=== PATIENT | male | born 1990 | race Caucasian/White ===

== ENCOUNTER 2016-04-22 15:17 | Inpatient (IN) | payer OTHER ==
[2016-04-22] MEDS ORDERED: IPRATROPIUM-ALBUTEROL 3 ML NEB INHALATION STA (16:59)
[2016-04-22] MEDS ORDERED: IBUPROFEN 600 MG TAB PO STA (16:59)
--- NOTE | 2016-04-22 17:04 | ED ---
SOB HPI - General Source: patient, RN notes reviewed Mode of arrival: ambulatory Limitations: no limitations <Kat Espinosa - Last Filed: 04/22/16 19:45> <Grzegorz Flor - Last Filed: 04/22/16 19:54> - General Chief Complaint: Shortness of Breath Stated Complaint: SALAS Time Seen by Provider: 04/22/16 16:56 - History of Present Illness Initial Comments: 25-year-old male presents to the emergency Department chief complaint of shortness of breath. Patient states he's had a cough for the past few days. Last night it became harder to breathe. Patient states he had a lot of phlegm production. Patient is a smoker. Patient denies any other health history. Patient denies a runny nose or sore throat. Patient states that this cough and the shortness of breath is just becoming more bothersome so he thought that he should be seen. Patient denies any other symptoms at this time.Patient denies any recent fever, chills, chest pain, back pain, abdominal pain, nausea vomiting , numbness or tingling, dysuria or hematuria, constipation or diarrhea, headaches or visual changes, or any other current symptoms. (Kat Espinosa) - Related Data Home Medications Medication Instructions Recorded Confirmed Acetaminophen Tab [Tylenol Tab] 325 mg PO Q4H PRN 04/22/16 04/22/16 Ibuprofen [Motrin] 400 mg PO Q6HR PRN 04/22/16 04/22/16 guaiFENesin [Mucinex] 600 mg PO BID PRN 04/22/16 04/22/16 Allergies Allergy/AdvReac Type Severity Reaction Status Date / Time No Known Allergies Allergy Verified 04/22/16 16:20 Review of Systems ROS Other: All systems not noted in ROS Statement are negative. <Kat Espinosa - Last Filed: 04/22/16 19:45> ROS Other: All systems not noted in ROS Statement are negative. <Grzegorz Flor - Last Filed: 04/22/16 19:54> ROS Statement: Those systems with pertinent positive or pertinent negative responses have been documented in the HPI. Past Medical History Past Medical History: No Reported History History of Any Multi-Drug Resistant Organisms: None Reported Past Surgical History: No Surgical Hx Reported Past Psychological History: No Psychological Hx Reported Smoking Status: Current every day smoker Past Alcohol Use History: Occasional Past Drug Use History: Marijuana <Kat Espinosa - Last Filed: 04/22/16 19:45> General Exam Limitations: no limitations <Kat Espinosa - Last Filed: 04/22/16 19:45> <Grzegorz Flor - Last Filed: 04/22/16 19:54> - General Exam Comments Initial Comments: General: The patient is awake and alert, in no distress, and does not appear acutely ill. Eye: Pupils are equal, round. Ears, nose, mouth and throat: There are moist mucous membranes. Neck: The neck is supple, there is no tenderness. Cardiovascular: There is a regular rate and rhythm. No murmur, rub or gallop is appreciated. Respiratory: Lungs are clear to auscultation, respirations are non-labored, breath sounds are equal but diminished mental minimal wheeze, no stridor, rales , or rhonchi. Gastrointestinal: Soft, non-distended, non-tender abdomen without masses or organomegaly noted. There is no rebound or guarding present. No CVA tenderness. Bowel sounds are unremarkable. Back: There is no tenderness to palpation in the midline. There is no obvious deformity. No rashes noted. Musculoskeletal: Normal ROM, no tenderness, There is no pedal edema. There is no calf tenderness or swelling. Sensation intact. Pulses equal bilaterally 2+. Neurological: CN II-XII intact, There are no obvious motor or sensory deficits. Coordination appears grossly intact. Speech is normal. Skin: Skin is warm and dry and no rashes or lesions are noted. Psychiatric: Cooperative, appropriate mood & affect, normal judgment. (Kat Espinosa) Course <Kat Espinosa - Last Filed: 04/22/16 19:45> <Grzegorz Flor - Last Filed: 04/22/16 19:54> Vital Signs 04/22/16 04/22/16 04/22/16 16:08 16:48 17:29 Temperature 99.3 F Pulse Rate 90 104 H Respiratory 18 20 Rate Blood Pressure 124/79 O2 Sat by Pulse 99 Oximetry 04/22/16 04/22/16 17:40 18:11 Temperature Pulse Rate 100 Respiratory 18 Rate Blood Pressure O2 Sat by Pulse Oximetry - Reevaluation(s) Reevaluation #1: 04/22/16 19:53 I did personally do a [id number] examination the patient and did discuss the findings with him and his significant other. Patient has been coughing for a week he does have at this time recently clear lung sounds with good heart sounds. Is some tenderness palpation of the anterior lateral neck with some slight crepitation noted. I did discuss the case with Dr. Adkins and with Dr. Alan. Patient will be admitted place an IV antibiotics oxygen antitussives repeat x-ray in the morning. He currently is stable awake alert oriented in no acute distress. His trachea is midline. (Grzegorz Flor) Medical Decision Making - Radiology Data Radiology results: report reviewed, image reviewed <Kat Espinosa - Last Filed: 04/22/16 19:45> <Grzegorz Flor - Last Filed: 04/22/16 19:54> - Medical Decision Making 25-year-old male presents emergency Department with a chief complaint of shortness of breath. At this time patient's wheezing has improved with the breathing treatment. This time patient's chest x-ray showing a pneumomediastinum as well as a bronchial pneumonia. This time we will start patient on oxygen we will also start him on Tessalon Perles and we will start him antibiotics for the bronchial pneumonia. We did discuss repeat chest x-ray in am. Patient Stated He Understood All Questions Have Been Answered. He Will Be admitted. (Kat Espinosa) Disposition Time of Disposition: 19:32 Decision Date: 04/22/16 Decision Time: 19:32 <Kat Espinosa - Last Filed: 04/22/16 19:45> <Grzegorz Flor - Last Filed: 04/22/16 19:54> Clinical Impression: Nicotine abuse, Pneumomediastinum Disposition: ADMITTED IP TO THIS [facility] Condition: Stable Referrals: None,Stated [Primary Care Provider] - 1-2 days
--- NOTE | 2016-04-22 17:53 | XR ---
EXAMINATION TYPE: XR chest 2V DATE OF EXAM: 04/22/2016 5:06 PM COMPARISON: NONE HISTORY: Cough and congestion TECHNIQUE: Frontal and lateral views of the chest are obtained. FINDINGS: There is no focal air space opacity, pleural effusion, or pneumothorax seen. The cardiac silhouette size is within normal limits. The osseous structures are intact. Lucency extends from th e thoracic inlet towards the neck. IMPRESSION: Pneumomediastinum
--- NOTE | 2016-04-22 19:08 | CT ---
EXAMINATION TYPE: CT chest wo con DATE OF EXAM: 04/22/2016 6:24 PM COMPARISON: Chest x-ray same day HISTORY: Cough x 2 days with right sided chest pain radiating to neck. CT DLP: 818.00 mGycm Automated exposure control for dose reduction was used. FINDINGS: Pneumomediastinum with air dissection into the neck is again noted, there is also present over the up per chest anteriorly towards the right of midline. There is no pneumothorax. Patchy density present i n the left upper lobe, left lower lobe and right lower lobe. Bronchial wall thickening is noted. Sple en is enlarged. No mediastinal adenopathy, no hilar or axillary adenopathy. Bones are normal. Aorta s hows normal caliber. No pleural effusion. Possible medullary sponge kidney findings. IMPRESSION: PNEUMOMEDIASTINUM, BRONCHOPNEUMONIA BILATERALLY. SPLENOMEGALY.
[2016-04-22] MEDS ORDERED: HYDROmorphone 1 MG/ML 1 ML SYRINGE IVP STA (19:26)
[2016-04-22] MEDS ORDERED: PNEUMONIA PROTOCOL UTILIZED 1 EACH MISC PO PRN (19:46)
[2016-04-22] MEDS ORDERED: LEVOFLOXACIN 750MG-D5W PMX 750 MG in DEXTROSE/WATER 1 150ML.BAG IVPB STA (19:46)
[2016-04-22] MEDS ORDERED: BENZONATATE 100 MG CAP PO STA (19:48)
[2016-04-22] MEDS ORDERED: IBUPROFEN 400 MG TAB PO PRN (19:49)
[2016-04-22] MEDS ORDERED: ACETAMINOPHEN TAB 325 MG TAB PO PRN (19:49)
[2016-04-22] MEDS: SODIUM CHLORIDE 0.9% 1,000 ML IV SCH (20:20)
[2016-04-22 20:31] LABS: Basophils % (A) 0 %; CH 30.9; CHCM 34.8; Eosinophils # (A) 0.1 k/uL (0-0.7); Eosinophils % (A) 1 %; HCT 46.2 % (39.0-53.0); HDW 2.39; HGB 15.8 gm/dL (13.0-17.5); Luc # (Auto) 0.36; Luc % (Auto) 3; Lymphocytes # (A) 1.7 k/uL (1.0-4.8); Lymphocytes % (A) 14 %; MCH 30.4 pg (25.0-35.0); MCHC 34.1 g/dL (31.0-37.0); MCV 89.1 fL (80.0-100.0); Mean Platelet Volume 6.5; Monocytes # (A) 0.5 k/uL (0-1.0); Monocytes % (A) 5 %; Neutrophils # (A) 8.9 k/uL (1.3-7.7); Neutrophils % (A) 77 %; RBC 5.19 m/uL (4.30-5.90); RDW 12.7 % (11.5-15.5); WBC 11.6 k/uL (3.8-10.6); WBC (Perox) 11.79
[2016-04-22 20:45] LABS: ALT 27 U/L (21-72); AST 20 U/L (17-59); Alkaline Phosphatase 94 U/L (38-126); Anion Gap 16 mmol/L; Blood Urea Nitrogen 16 mg/dL (9-20); Calcium 9.9 mg/dL (8.4-10.2); Carbon Dioxide 21 mmol/L (22-30); Chloride 105 mmol/L (98-107); Glucose 100 mg/dL (74-99); Non-African American GFR(MDRD) >60 (>60 ml/min/1.73 sqM); Potassium 3.7 mmol/L (3.5-5.1); Sodium 142 mmol/L (137-145); Total Bilirubin 0.8 mg/dL (0.2-1.3); Total Protein 7.7 g/dL (6.3-8.2)
[2016-04-22] MEDS ORDERED: NICOTINE 21MG/24HR PATCH TRANSDERM STA (22:16)
[2016-04-22] MEDS: HYDROcodone/APAP 7.5-325MG 1 EACH TAB PO PRN (22:40)
[2016-04-22 22:49] VITALS: BMI 29.8
[2016-04-22] MEDS: IPRATROPIUM-ALBUTEROL 3 ML NEB INHALATION PRN (23:20)
[2016-04-22] MEDS: BENZONATATE 100 MG CAP PO SCH (23:25)
[2016-04-22] MEDS ORDERED: TEMAZEPAM 15 MG CAP PO PRN (23:54)
[2016-04-23] MEDS: HYDROmorphone 1 MG/ML 1 ML SYRINGE IVP PRN ×5 (00:12→19:09)
[2016-04-23] MEDS: SODIUM CHLORIDE 0.9% 1,000 ML IV SCH ×2 (07:23→17:17)
[2016-04-23] MEDS: BENZONATATE 100 MG CAP PO SCH ×3 (07:24→21:33)
[2016-04-23] MEDS: NICOTINE 21MG/24HR PATCH TRANSDERM SCH (07:24)
[2016-04-23] MEDS: FORMOTEROL FUMARATE 20 MCG/2 ML NEBU INHALATION SCH ×2 (08:02→18:48)
[2016-04-23] MEDS: BUDESONIDE 1 MG/2 ML NEBU INHALATION SCH ×2 (08:02→18:48)
[2016-04-23] MEDS: IPRATROPIUM-ALBUTEROL 3 ML NEB INHALATION PRN ×2 (08:02→18:48)
--- NOTE | 2016-04-23 08:33 | HP ---
DATE OF ADMISSION: Chief complaints are shortness of breath and cough. HISTORY OF PRESENT ILLNESS: This 25-year-old gentleman with a past medical history of no significant medical issues being followed by Dr. Valles in the outpatient setting complaining of shortness of breath and cough over the past several days. The patient initially had a cough on multiple occasions without much sputum, but subsequently for the last 2 to 3 days patient had increased shortness of breath. Patient came to [facility] and chest x-ray showed pneumomediastinum, which is up to the neck also. Patient admitted for further evaluation. Bronchopneumonia is also suspected. There is no history of fevers, rigors. No history of headache, loss of consciousness or seizures. PAST MEDICAL HISTORY: History of THC, history of nicotine dependence, history of heart murmur as a child. Medications prior to admission include: 1. Mucinex 600 mg b.i.d. p.r.n. 2. Motrin 400 mg q.6 p.r.n. 3. Tylenol 325 mg q.4 p.r.n. Allergies are none. FAMILY HISTORY: History of pneumonia in the family. SOCIAL HISTORY: History of THC. History of nicotine dependence. REVIEW OF SYSTEMS: ENT: No diminished hearing or vision. CARDIOVASCULAR: No angina or palpitations. RESPIRATORY: As mentioned earlier. GI: No nausea./ : No dysuria. NERVOUS SYSTEM: No numbness or weakness. ALLERGY/IMMUNOLOGY: No asthma or hayfever. MUSCULOSKELETAL: As mentioned earlier. HEMATOLOGY/ONCOLOGY: No history of anemia. ENDOCRINE: No history of diabetes or hypothyroidism. CONSTITUTIONAL: As mentioned earlier. DERMATOLOGY: Negative. RHEUMATOLOGY: Negative. PSYCHIATRY: As mentioned earlier. PHYSICAL EXAMINATION: The patient is alert and oriented x3. Pulse 74, blood pressure 144/67, respiration 18, temperature 98.9 pulse ox 96% on room air. HEENT: Conjunctivae normal. Oral mucosa moist. NECK: Subcutaneous emphysema in neck. CARDIOVASCULAR: S1 and S2, muffled. No S3, no S4. RESPIRATORY: Breath sounds diminished at the bases. A few scattered rhonchi and crackles. Expiratory wheezing also present. ABDOMEN: Soft, nontender. No mass palpable. LEGS: No edema, no swelling. NERVOUS SYSTEM: Higher function as mentioned. Moves all 4 limbs. No focal deficits. LYMPHATICS: No lymphadenopathy of neck, axillae or groin. SKIN: No ulcer, rash, bleeding. LABS: WBC 11.6. Glucose 100. ASSESSMENT: 1. Acute bilateral bronchopneumonia. 2. Pneumomediastinum with shortness of breath. 3. reactive bronchospasm. 4. Increased WBC. 5. History of THC. 6. History of nicotine dependence. RECOMMENDATIONS AND DISCUSSION: This 25-year-old gentleman who presented with multiple complex medical issues, we will monitor the patient closely. Continue the current medications. Continue symptomatic treatment. Continue bronchodilators, empiric antibiotics. Consult Dr. Adkins. Guarded prognosis because of multiple complex medical issues. Further recommendations to follow. See orders for further details. MTDD
--- NOTE | 2016-04-23 08:35 | XR ---
EXAMINATION TYPE: XR chest 2V DATE OF EXAM: 04/23/2016 8:27 AM HISTORY: Pneumomediastinum. REFERENCE: Previous study dated 04/22/2016. FINDINGS: There is subcutaneous emphysema present bilaterally, worse on the right than the left withi n the neck. The lungs appear clear. Pleural spaces are clear. Heart size is normal. The patient's pneumomediastin um is difficult to appreciate on this study. IMPRESSION: SUBCUTANEOUS EMPHYSEMA DESCRIBED. THIS HAS WORSENED SLIGHTLY.
[2016-04-23 08:38] LABS: Anion Gap 16 mmol/L; Blood Urea Nitrogen 12 mg/dL (9-20); Calcium 9.3 mg/dL (8.4-10.2); Carbon Dioxide 23 mmol/L (22-30); Chloride 104 mmol/L (98-107); Glucose 109 mg/dL (74-99); Non-African American GFR(MDRD) >60 (>60 ml/min/1.73 sqM); Potassium 4.2 mmol/L (3.5-5.1); Sodium 143 mmol/L (137-145)
[2016-04-23 08:46] LABS: Basophils # (A) 0.1 k/uL (0-0.2); Basophils % (A) 1 %; CHCM 34.2; Eosinophils # (A) 0.1 k/uL (0-0.7); Eosinophils % (A) 1 %; HCT 44.7 % (39.0-53.0); HDW 2.38; HGB 14.8 gm/dL (13.0-17.5); Luc # (Auto) 0.35; Luc % (Auto) 4; Lymphocytes # (A) 1.8 k/uL (1.0-4.8); Lymphocytes % (A) 19 %; MCH 30.2 pg (25.0-35.0); MCHC 33.1 g/dL (31.0-37.0); MCV 91.3 fL (80.0-100.0); Mean Platelet Volume 7.6; Monocytes # (A) 0.6 k/uL (0-1.0); Monocytes % (A) 6 %; Neutrophils # (A) 6.7 k/uL (1.3-7.7); Neutrophils % (A) 70 %; RDW 12.8 % (11.5-15.5); WBC 9.6 k/uL (3.8-10.6)
[2016-04-23] MEDS: AZITHROMYCIN 500 MG in SODIUM CHLORIDE 0.9% 250 ML IVPB SCH (08:59)
[2016-04-23] MEDS: HYDROcodone/APAP 7.5-325MG 1 EACH TAB PO PRN ×2 (11:30→17:18)
[2016-04-23] MEDS ORDERED: guaiFENesin-Coden 100-10MG/5ML 10 ML CUP PO PRN ×2 (11:34→12:51)
--- NOTE | 2016-04-23 13:28 | P.CNPUL ---
History of Present Illness Consult date: 04/23/16 Reason for consult: dyspnea, cough, chest pain Chief complaint: Shortness of breath and cough History of present illness: This is a 25-year-old gentleman who presented to emergency with complaints of shortness of breath. He's been having cough for the past few days. He started to breathe. Patient did have some phlegm production. His a history of smoking. I was called by the ER doctor states that the patient likely had some pneumomediastinum and subcutaneous emphysema. No obvious pneumothorax on chest x-ray or computed tomography scan. The patient is feeling 100 times better today and wants to be discharged home. No fever no chills. No phlegm production. Again feeling much much better. Review of Systems A 12 point review of systems is positive for shortness of breath and cough both of which have really dramatically improved. He has neither right now. He's feeling baseline. We'll like to be discharged home. The rest of the 12 point review of systems is unremarkable. Past Medical History Past Medical History: No Reported History Additional Past Medical History / Comment(s): heart murmur as child as since resolved History of Any Multi-Drug Resistant Organisms: None Reported Past Surgical History: No Surgical Hx Reported Past Psychological History: No Psychological Hx Reported Smoking Status: Current every day smoker Past Alcohol Use History: Occasional Past Drug Use History: Marijuana - Past Family History Mother Family Medical History: Pneumonia Medications and Allergies Home Medications Medication Instructions Recorded Confirmed Type Acetaminophen Tab [Tylenol Tab] 325 mg PO Q4H PRN 04/22/16 04/22/16 History Ibuprofen [Motrin] 400 mg PO Q6HR PRN 04/22/16 04/22/16 History guaiFENesin [Mucinex] 600 mg PO BID PRN 04/22/16 04/22/16 History Allergies Allergy/AdvReac Type Severity Reaction Status Date / Time No Known Allergies Allergy Verified 04/22/16 22:41 Physical Exam Osteopathic Statement: *. No significant issues noted on an osteopathic structural exam other than those noted in the History and Physical/Consult. Vitals: Vital Signs Temp Pulse Pulse Resp BP BP Pulse Ox 04/23/16 08:25 74 04/23/16 08:23 74 04/23/16 08:14 72 04/23/16 08:13 72 04/23/16 08:03 72 04/23/16 07:00 98.9 F 86 16 129/75 100 04/22/16 23:24 84 04/22/16 23:00 98.9 F 74 18 144/67 96 04/22/16 21:11 97.9 F 74 18 148/75 98 04/22/16 20:27 20 Intake and Output 04/22/16 04/23/16 04/23/16 22:59 06:59 14:59 Intake Total 450 240 Balance 450 240 Intake: IV 100 Sodium Chloride 0.9% 1, 100 000 ml @ 100 mls/hr IV . Q10H [facility] Rx#:[id number] Oral 350 240 Other: Voiding Method Toilet Toilet Weight 99.79 kg No acute distress, oriented 3. HEENT examination is grossly unremarkable. Mucous membranes are moist. No oral lesions. Neck supple. Full range of motion. Some subcutaneous emphysema noted in the left neck area more on the left side than on the right side. No masses. Neck veins are flat. Cardiovascular examination reveals regular rhythm rate. S1-S2 normal. Lungs are clear breath sounds are equal. No wheezes or rhonchi. Abdomen soft bowel sounds are heard. Extremities are intact - Constitutional General appearance: cooperative Results - Laboratory Findings CBC and BMP: 04/23/16 07:35 04/23/16 07:35 Abnormal lab findings: Abnormal Labs 04/22/16 04/22/16 04/23/16 20:10 20:10 07:35 WBC 11.6 H Neutrophils # 8.9 H Carbon Dioxide 21 L Glucose 100 H 109 H - Diagnostic Findings Chest x-ray: image reviewed CT scan - chest: image reviewed Assessment and Plan (1) Subcutaneous emphysema Status: Acute (2) Nicotine abuse Status: Acute (3) Pneumomediastinum Status: Acute Plan: Plan dated 04/23/2016 The patient is doing much better. Once been discharged home. Not using his oxygen therapy. From my perspective the patient could be discharged home. She go home a short course of antibiotics. She'll follow up with his primary doctor. Needs a follow-up x-ray in the next 7 days or so. She will return to the ER should things are sent. She'll also be discharged isn't on an antitussive to prevent further issues. I did intake counselor him about the importance of smoking cessation. Time with Patient: Greater than 30
[2016-04-23] MEDS: ALPRAZolam 0.25 MG TAB PO PRN ×2 (14:22→21:33)
[2016-04-23] MEDS ORDERED: LEVOFLOXACIN 750 MG TAB PO SCH (21:00)
[2016-04-23 22:48] VITALS: RESP 18
[2016-04-24 07:48] VITALS: BP 119/79; TEMP 97
[2016-04-24 07:48] LABS: Basophils # (A) 0.1 k/uL (0-0.2); Basophils % (A) 1 %; CH 30.8; CHCM 33.9; Eosinophils # (A) 0.3 k/uL (0-0.7); Eosinophils % (A) 4 %; HCT 44.8 % (39.0-53.0); HDW 2.47; HGB 14.7 gm/dL (13.0-17.5); Luc # (Auto) 0.28; Luc % (Auto) 4; Lymphocytes # (A) 2.1 k/uL (1.0-4.8); Lymphocytes % (A) 32 %; MCH 29.9 pg (25.0-35.0); MCHC 32.8 g/dL (31.0-37.0); MCV 91.3 fL (80.0-100.0); Mean Platelet Volume 7.6; Monocytes # (A) 0.3 k/uL (0-1.0); Monocytes % (A) 5 %; Neutrophils # (A) 3.6 k/uL (1.3-7.7); Neutrophils % (A) 54 %; RDW 12.8 % (11.5-15.5); WBC 6.6 k/uL (3.8-10.6)
[2016-04-24] MEDS: IPRATROPIUM-ALBUTEROL 3 ML NEB INHALATION PRN (07:51)
[2016-04-24] MEDS: BUDESONIDE 1 MG/2 ML NEBU INHALATION SCH (07:51)
[2016-04-24] MEDS: FORMOTEROL FUMARATE 20 MCG/2 ML NEBU INHALATION SCH (07:51)
[2016-04-24 07:54] VITALS: PULSE 72
[2016-04-24 08:05] LABS: Anion Gap 17 mmol/L; Blood Urea Nitrogen 11 mg/dL (9-20); Calcium 9.7 mg/dL (8.4-10.2); Carbon Dioxide 24 mmol/L (22-30); Chloride 107 mmol/L (98-107); Glucose 102 mg/dL (74-99); Non-African American GFR(MDRD) >60 (>60 ml/min/1.73 sqM); Potassium 4.3 mmol/L (3.5-5.1); Sodium 148 mmol/L (137-145)
[2016-04-24] MEDS: HYDROcodone/APAP 7.5-325MG 1 EACH TAB PO PRN (08:33)
[2016-04-24] MEDS: BENZONATATE 100 MG CAP PO SCH (08:34)
[2016-04-24] MEDS: NICOTINE 21MG/24HR PATCH TRANSDERM SCH (08:34)
[2016-04-24] MEDS: AZITHROMYCIN 500 MG in SODIUM CHLORIDE 0.9% 250 ML IVPB SCH (09:48)
--- NOTE | 2016-04-24 09:55 | PN ---
DATE OF SERVICE: 04/23/2016 This 25-year-old gentleman who was admitted with acute bilateral bronchopneumonia also had . The patient feeling slightly better and Dr. Adkins is following the patient closely. No chest pain, no palpitations. No fever. On exam, alert and oriented x3. Pulse is 79, blood pressure 118/60, respirations 16, temperature 97.8, pulse ox 100% on room air. HEENT: Conjunctivae normal. NECK: No jugular venous distention. CARDIOVASCULAR: S1 and S2, muffled. RESPIRATORY: Breath sounds diminished at the bases. A few rhonchi, no crackles. ABDOMEN: Soft, nontender. LEGS: No edema, no swelling. NERVOUS SYSTEM: No focal deficits. LABS: CBC, BMP within normal limits. Influenza negative. ASSESSMENT: 1. Acute bilateral bronchopneumonia. 2. with shortness of breath. 3. Reactive bronchospasm. 4. Increased white blood cell count. 5. History of tetrahydrocannabinol. 6. History of nicotine dependence. RECOMMENDATIONS AND DISCUSSION: I recommend to continue the current management and symptomatic treatment. Continue the pain medications. Continue with antibiotics. Follow closely with Pulmonary. Repeat chest x-ray. Guarded prognosis. Further recommendations to follow. MTDD
--- NOTE | 2016-04-24 13:39 | P.PN ---
Subjective This a 25-year-old white male who presented with significant coughing and development of pneumomediastinum with subcutaneous emphysema. The patient is doing well today and will be discharged home. He sees a family doctor in the area. The patient has no other complaints. No coughing. No shortness of breath. No further subcutaneous air in the neck or chest area. I explained the pathophysiology of pneumomediastinum to him and his today. Objective - Vital Signs Vital signs: Vital Signs Temp 97.0 F L 04/24/16 07:00 Pulse 72 04/24/16 08:16 Resp 18 04/24/16 07:00 BP 119/79 04/24/16 07:00 Pulse Ox 100 04/24/16 07:00 Intake & Output 04/23/16 04/24/16 04/24/16 18:59 06:59 18:59 Intake Total 950 300 Balance 950 300 Intake: IV 950 Azithromycin 500 mg In 250 Sodium Chloride 0.9% 250 ml @ 125 mls/hr IVPB DAILY [facility] Rx#:[id number] Sodium Chloride 0.9% 1, 650 000 ml @ 100 mls/hr IV . Q10H [facility] Rx#:[id number] cefTRIAXone 1,000 mg In 50 Sodium Chloride 0.9% 50 ml @ 100 mls/hr IVPB Q24HR [facility] Rx#:[id number] Oral 300 Other: Voiding Method Toilet Toilet Toilet # Voids 2 - Exam No acute distress, oriented 3. Neck supple. Full range of motion. No adenopathy. HEENT examination is grossly unremarkable. Mucous membranes are moist. Cardiovascular examination reveals regular rhythm rate. S1-S2 normal. Lungs are clear breath sounds are equal. No wheezes or rhonchi. Abdomen soft. Extremities are intact. - Labs CBC & Chem 7: 04/24/16 07:25 04/24/16 07:25 Labs: Abnormal Lab Results - Last 24 Hours (Table) 04/24/16 Range/Units 07:25 Sodium 148 H (137-145) mmol/L Glucose 102 H (74-99) mg/dL Microbiology - Last 24 Hours (Table) 04/22/16 20:10 Blood Culture - Preliminary Blood No Growth after 24 hours Assessment and Plan (1) Subcutaneous emphysema Status: Acute (2) Nicotine abuse Status: Acute (3) Pneumomediastinum Status: Acute Plan: Plan dated 04/23/2016 The patient is doing much better. Once been discharged home. Not using his oxygen therapy. From my perspective the patient could be discharged home. She go home a short course of antibiotics. She'll follow up with his primary doctor. Needs a follow-up x-ray in the next 7 days or so. She will return to the ER should things are sent. She'll also be discharged isn't on an antitussive to prevent further issues. I did group therapy counselor him about the importance of smoking cessation. Plan dated 04/24/2016 The patient is stable for discharge. The patient should follow-up with his primary doctor. In addition, he understands that should he have a problem like this again he should have directly to the emergency room. Should he have ongoing issues, the patient should follow up with us in the office. I did group therapy counselor him extensively about the importance of smoking cessation and the fact that tobacco will call us the formation of small system bloods in the apices of the lungs which will put him at higher risk for either pneumothorax or pneumomediastinum. Time with Patient: Less than 30
[2016-04-25] MEDS ORDERED: AZITHROMYCIN 500 MG TAB PO SCH (09:00)
--- NOTE | 2016-04-25 12:51 | DS ---
DATE OF ADMISSION: 04/22/2016 DATE OF DISCHARGE: 04/24/2016 DATE OF SERVICE: 04/24/2016 FINAL DIAGNOSES: 1. Acute bilateral bronchopneumonia, possibly gram-negative. 2. Pneumomediastinum. 3. Shortness of breath with reactive bronchospasm. 4. Increased WBC. 5. History of THC. 6. History of nicotine dependence. 7. Rule out chronic obstructive pulmonary disease. DISCHARGE DISPOSITION: The patient will be discharged in a stable condition with guarded prognosis. HISTORY OF PRESENT ILLNESS: This 25-year-old gentleman with a past medical history of multiple medical problems admitted with acute bilaterally bronchopneumonia and as well as pneumomediastinum. The patient was treated symptomatically. The patient . Dr. Adkins cleared the patient for discharge. Recommended outpatient followup. On exam, vitals are stable . CARDIOVASCULAR: S1 and S2, muffled. ABDOMEN: Soft. NERVOUS SYSTEM: No focal deficits DISCHARGE ADVICE: 1. Diet is cardiac. 2. Activity limited until followup. 3. Follow up with Dr. Palomo as advised. 4. Follow up with Dr. Adkins as recommended. Medications are: 1. Zithromax 500 mg p.o. daily for 5 days. 2. Tylenol 325 mg p.o. q.4 p.r.n. 3. Tessalon Perles 200 mg p.o. t.i.d. 4. Motrin 400 mg q.6 p.r.n. 5. Habitrol 21 daily. 6. Mucinex 600 mg p.o. b.i.d. 7. Guaifenesin 10 mL q.6 p.r.n. Once again, the patient will be discharged in a stable condition with guarded prognosis. MTDD
== END 2016-04-24 14:20 | disposition home or self-care (01) | DRG 195 ==
LOC: EC 15:17 → 5MS5E 19:32
PROVIDERS: ADMIT Internal Medicine; ATTEND Internal Medicine
DX: J18.0 Bronchopneumonia, unspecified organism (principal); J98.2 Interstitial emphysema; D72.829 Elevated white blood cell count, unspecified; R06.2 Wheezing; J98.01 Acute bronchospasm; F12.90 Cannabis use, unspecified, uncomplicated; F17.200 Nicotine dependence, unspecified, uncomplicated; Z71.6 Tobacco abuse counseling; Z86.79 Personal history of other diseases of the circulatory system
CPT/HCPCS: 36415; 71020; 71250; 80048; 80053; 85025; 87040; 87502; 94640; 96361; 96374; 99285

== ENCOUNTER 2016-06-17 07:35 | Emergency (ER) | payer SELFPAY ==
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
--- NOTE | 2016-06-17 08:25 | XR ---
Cervical spine HISTORY: Pain 5 views of the cervical spine on 6 images No comparisons There is no significant foraminal encroachment with the exception of the right neural foramen at C3-4 . Cervical vertebral bodies show preserved height, alignment, and bone mineralization. Disc spaces an d prevertebral soft tissues are normal. Odontoid view is limited. IMPRESSION: There may be some foraminal encroachment on the right at C3-4 as described.
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
[2016-06-17 09:06] VITALS: BP 151/64; PULSE 77; RESP 18; TEMP 97
== END 2016-06-17 09:14 | disposition home or self-care (01) ==
LOC: EC 07:35
DX: G56.01 Carpal tunnel syndrome, right upper limb (principal); F17.200 Nicotine dependence, unspecified, uncomplicated
CPT/HCPCS: 72050; 99283

== ENCOUNTER → 2016-09-09 | Outpatient (CLI) | payer OTHER ==
[2016-09-09 23:58] LABS: Basophils % (A) 1 %; CH 30.5; CHCM 32.3; Eosinophils # (A) 0.2 k/uL (0-0.7); Eosinophils % (A) 2 %; HCT 46.3 % (39.0-53.0); HDW 2.17; HGB 15.2 gm/dL (13.0-17.5); Luc # (Auto) 0.13; Luc % (Auto) 2; Lymphocytes # (A) 2.1 k/uL (1.0-4.8); Lymphocytes % (A) 29 %; MCHC 32.7 g/dL (31.0-37.0); MCV 94.8 fL (80.0-100.0); Mean Platelet Volume 7.6; Monocytes # (A) 0.4 k/uL (0-1.0); Monocytes % (A) 5 %; Neutrophils # (A) 4.5 k/uL (1.3-7.7); Neutrophils % (A) 62 %; RBC 4.89 m/uL (4.30-5.90); WBC 7.3 k/uL (3.8-10.6); WBC (Perox) 7.36
[2016-09-10 01:05] LABS: Erythrocyte Sedimentation Rate 5 mm/hr (0-15)
[2016-09-10 01:37] LABS: ALT 27 U/L (21-72); AST 21 U/L (17-59); Alkaline Phosphatase 67 U/L (38-126); Anion Gap 12 mmol/L; Blood Urea Nitrogen 12 mg/dL (9-20); Carbon Dioxide 24 mmol/L (22-30); Chloride 108 mmol/L (98-107); Cholesterol 175 mg/dL (<200); Creatine Kinase 52 U/L (55-170); Glucose 85 mg/dL (74-99); HDL Cholesterol 61 mg/dL (40-60); Non-African American GFR(MDRD) >60 (>60 ml/min/1.73 sqM); Potassium 4.3 mmol/L (3.5-5.1); Sodium 144 mmol/L (137-145); Total Bilirubin 0.3 mg/dL (0.2-1.3); Total Protein 7.5 g/dL (6.3-8.2); Triglycerides 143 mg/dL (<150)
[2016-09-10 01:39] LABS: Rheumatoid Factor, Qnt <9 IU/mL (<12)
== END ==
LOC: MMGSC 17:09
PROVIDERS: ATTEND Family Medicine
DX: M54.5 Low back pain (principal); M25.50 Pain in unspecified joint; M79.1 Myalgia
CPT/HCPCS: 36415; 80053; 80061; 82550; 84439; 84443; 85025; 85652; 86038; 86431

== ENCOUNTER → 2016-09-16 | Outpatient (CLI) | payer OTHER ==
--- NOTE | 2016-09-17 07:05 | XR ---
EXAMINATION TYPE: XR elbow complete RT DATE OF EXAM: 09/16/2016 CLINICAL HISTORY: Right elbow pain, clicking sensation per patient. TECHNIQUE: Frontal, lateral and oblique images of the right elbow are obtained. COMPARISON: Right elbow x-ray June 17, 2016 FINDINGS: Oblique image is suboptimal due to poor obliquity. There is no acute fracture/dislocation evident in the right elbow. No abnormal fat pad signs are seen. The overlying soft tissue appears u nremarkable. IMPRESSION: Unremarkable study.
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
== END | disposition home or self-care (01) ==
LOC: RADXRMAIN 17:29
PROVIDERS: ATTEND Family Medicine
DX: M48.07 Spinal stenosis, lumbosacral region (principal); M40.46 Postural lordosis, lumbar region; M25.521 Pain in right elbow
CPT/HCPCS: 72100